=== PATIENT | female | born 2000 ===

== ENCOUNTER 2022-11-05 05:21 | Inpatient (IN) | payer SELFPAY ==
[2022-11-05] MEDS ORDERED: Sodium Chloride 0.9% 2.5 ML Syringe FLUSH PRN (05:38)
[2022-11-05] MEDS ORDERED: Sodium Chloride 0.9% 20 ML SDV IV PRN (05:38)
[2022-11-05] MEDS ORDERED: Sodium Chloride 0.9% 10 ML Syringe FLUSH PRN (05:38)
[2022-11-05] MEDS ORDERED: Citric Acid/Sodium Citrate Solution 30 ML Cup PO ONE (05:38)
[2022-11-05] MEDS ORDERED: Oxytocin/0.9 % Sodium Chloride 30 UNIT/500 ML BAG IV SCH (05:45)
[2022-11-05] MEDS: Lactated Ringers 1,000 ML IV SCH ×2 (05:53→06:53)
[2022-11-05] MEDS ORDERED: Ketorolac 30 MG/ML SDV ONE (07:31)
[2022-11-05] MEDS ORDERED: Ondansetron 4 MG/2 ML SDV ONE (07:31)
[2022-11-05] MEDS ORDERED: ceFAZolin 1 GM Vial ONE (07:31)
[2022-11-05] MEDS ORDERED: Dexamethasone 4 MG/ML 5 ML MDV ONE (07:31)
[2022-11-05] MEDS ORDERED: fentaNYL 100 MCG/2 ML SDV ONE (07:31)
[2022-11-05] MEDS ORDERED: Oxytocin 10 Units/1 ML SDV ONE (07:31)
[2022-11-05] MEDS ORDERED: Morphine PF 10 MG/10 ML SDV ONE (07:32)
[2022-11-05] MEDS ORDERED: Ropivacaine 0.5% 5 MG/ML 30 ML SDV ONE (08:34)
[2022-11-05] MEDS ORDERED: Lanolin 100% Cream 7 GM Tube TOP PRN (09:01)
[2022-11-05] MEDS ORDERED: Acetaminophen/oxyCODONE 325-5 MG Tab PO PRN ×2 (09:01→09:11)
[2022-11-05] MEDS ORDERED: Bisacodyl 10 MG Supp RECTAL PRN (09:01)
[2022-11-05] MEDS ORDERED: Oxytocin 10 Units/1 ML SDV IM PRN (09:01)
[2022-11-05] MEDS ORDERED: Tranexamic Acid 1,000 MG in Sodium Chloride 0.9% 100 ML IV PRN (09:01)
[2022-11-05] MEDS ORDERED: Ondansetron 4 MG/2 ML SDV IVPUSH PRN ×2 (09:01→09:11)
[2022-11-05] MEDS ORDERED: diphenhydrAMINE 50 MG/ML SDV IVPUSH PRN ×2 (09:01→09:11)
[2022-11-05] MEDS ORDERED: Methylergonovine 0.2 MG/1 ML Amp IM PRN (09:01)
[2022-11-05] MEDS ORDERED: Misoprostol 200 MCG Tab RECTAL PRN (09:01)
[2022-11-05] MEDS ORDERED: Phenylephrine HCl In 0.9% NaCl 1 MG/10 ML Vial IVPUSH PRN (09:11)
[2022-11-05] MEDS ORDERED: ePHEDrine 50 MG/ML SDV IVPUSH PRN ×2 (09:11)
[2022-11-05] MEDS ORDERED: fentaNYL 100 MCG/2 ML SDV IVPUSH PRN (09:11)
[2022-11-05] MEDS ORDERED: Lactated Ringers 1,000 ML IV SCH (09:15)
[2022-11-05] MEDS ORDERED: Ropivacaine HCl/PF 400 MG in Premix Bag 1 BAG EPIDUR SCH (09:15)
[2022-11-05] MEDS ORDERED: Phenylephrine HCl In 0.9% NaCl 1 MG/10 ML Vial IVPUSH SCH (09:15)
[2022-11-05] MEDS ORDERED: ePHEDrine 50 MG/ML SDV IM PRN (10:35)
[2022-11-05] MEDS: Ketorolac 30 MG/ML SDV IVPUSH SCH ×2 (14:29→20:35)
[2022-11-05] MEDS: Docusate Sodium 100 MG Cap PO SCH (20:30)
[2022-11-06] MEDS: Ketorolac 30 MG/ML SDV IVPUSH SCH ×2 (02:48→09:44)
[2022-11-06] MEDS: Docusate Sodium 100 MG Cap PO SCH ×2 (09:45→21:23)
[2022-11-06] MEDS: Acetaminophen/oxyCODONE 325-5 MG Tab PO PRN (14:42)
[2022-11-06] MEDS: Ibuprofen 800 MG Tab PO PRN (21:23)
[2022-11-07] MEDS: Acetaminophen/oxyCODONE 325-5 MG Tab PO PRN ×2 (03:39→07:37)
[2022-11-07] MEDS: Ibuprofen 800 MG Tab PO PRN (08:21)
[2022-11-07] MEDS: Docusate Sodium 100 MG Cap PO SCH (08:22)
== END 2022-11-07 14:45 | disposition home or self-care (01) | DRG 788 ==
LOC: MW.OB 05:21
PROVIDERS: ADMIT Obstetrics & Gynecology; ATTEND Obstetrics & Gynecology
PROC: 10D00Z1 Extraction of Products of Conception, Low, Open Approach (ICD-10-PCS; principal; 2022-11-05)
DX: O44.03 Complete placenta previa NOS or without hemorrhage, third trimester (principal); O99.824 Streptococcus B carrier state complicating childbirth; Z37.0 Single live birth; Z3A.36 36 weeks gestation of pregnancy
CPT/HCPCS: 36415; 59025; 82803; 85014; 85018; 85027; 86592; 86850; 86900; 86901; 86920; A9270-GY; J0690; J1100; J1885; J2274; J2405; J2590; J2795; J3010; J7120; U0002